=== PATIENT | female | born 1990 | race African-American/Black ===

== ENCOUNTER 2021-12-14 15:23 | Emergency (ER) | payer OTHER ==
[2021-12-14 15:33] VITALS: BP 101/62; PULSE 71; RESP 16; TEMP 98; BMI 34.9
[2021-12-14 17:27] LABS: BASO % 0.5 % (0-2.0); HEMATOCRIT 40.3 % (32.4-45.2); HEMOGLOBIN 13.2 GM/dL (10.7-15.3); LYMPH % 40.8 % (8-40); MCH 29.4 pg (25.7-33.7); MCHC 32.9 g/dl (32.0-36.0); MEAN CELL VOLUME 89.4 fl (80-96); MEAN PLT VOLUME 9.8 fl (7.5-11.1); MONO % 4.8 % (3.8-10.2); NEUT % 45.9 % (42.8-82.8); PLATELET COUNT 191 10^3/uL (134-434); RBC 4.51 M/mm3 (3.60-5.2); RDW 14.5 % (11.6-15.6); WHITE BLOOD COUNT 5.8 K/mm3 (4.0-10.0)
[2021-12-14 17:47] LABS: CALCIUM 8.6 mg/dL (8.5-10.1)
[2021-12-14 17:48] LABS: ALBUMIN 3.4 g/dl (3.4-5.0); BLOOD UREA NITROGEN 10.1 mg/dL (7-18)
[2021-12-14 17:51] LABS: CREATININE 0.8 mg/dL (0.55-1.3)
[2021-12-14 17:52] LABS: BILIRUBIN,TOTAL 0.2 mg/dL (0.2-1); TOT PROT 7.4 g/dl (6.4-8.2)
[2021-12-14 18:00] LABS: URINE APPEARANCE CLEAR; URINE BILIRUBIN NEGATIVE (NEGATIVE); URINE COLOR YELLOW; URINE GLUCOSE (UA) NEGATIVE (NEGATIVE); URINE KETONE TRACE (NEGATIVE); URINE LEUK ESTERASE NEGATIVE (NEGATIVE); URINE NITRITE NEGATIVE (NEGATIVE); URINE PROTEIN NEGATIVE (NEGATIVE)
[2021-12-14 18:03] LABS: HCG,QUALITATIVE URINE Negative
== END 2021-12-14 20:15 | disposition home or self-care (01) ==
LOC: JER 15:23
DX: R10.84 Generalized abdominal pain (principal)
CPT/HCPCS: 36415; 76705-TC; 80053; 81003; 84703; 85025; 87086; 99284-25